=== PATIENT | female | born 2000 | race Caucasian/White ===

== ENCOUNTER 2022-01-22 09:15 | Emergency (ER) | payer SELFPAY ==
[~2022-01-22] VITALS: Ht 162.6 cm; Wt 90.7 kg
--- NOTE | 2022-01-22 09:20 | NUR ---
TO ER BED 9, BIB89 FROM [facility] FOR METH USE, AWAKE UPON ARRIVAL, GIVEN NARCAN 4MG, CONNECTED TO MONITOR, AWAITING MD ORDERS
[2022-01-22] MEDS ORDERED: NALOXONE PREFILLED SYRINGE 2 MG/2 ML SYRINGE IV ONE (09:30)
[2022-01-22] MEDS ORDERED: NALOXONE PREFILLED SYRINGE 2 MG/2 ML SYRINGE ONE (10:11)
--- NOTE | 2022-01-22 10:45 | NUR ---
AMBULATED TO THE RESTROOM WITH STEADY GAIT, UNASSISTED
[2022-01-22] MEDS ORDERED: NALO4SPR BNOSTRILS (11:44)
[2022-01-22] MEDS ORDERED: ONDANSETRON 4 MG TAB.RAPDIS ONE (12:28)
[2022-01-22] MEDS ORDERED: ONDANSETRON 4 MG TAB.RAPDIS SL ONE (12:30)
--- NOTE | 2022-01-22 12:30 | NUR ---
Patient discharged to home in stable condition. Written and verbal after care instructions given. Patient verbalizes understanding of instruction.
[2022-01-22 12:43] VITALS: BP 123/65
== END 2022-01-22 12:44 | disposition home or self-care (01) ==
LOC: ER 09:24 → EDBD 09:24 → ER 12:44
DX: T40.601A Poisoning by unspecified narcotics, accidental (unintentional), initial encounter (principal); R40.20 Unspecified coma; Z79.899 Other long term (current) drug therapy; Y92.89 Other specified places as the place of occurrence of the external cause
CPT/HCPCS: 99284; 96374; 71045; 84703; Q0162; J2310